=== PATIENT | male | born 2005 | race Caucasian/White ===

== ENCOUNTER 2024-07-30 07:56 | Day surgery (SDC) | payer OTHER ==
[2024-07-27 16:06] VITALS: BMI 22.4
[~2024-07-30 07:56] MED LIST: Pre Op ABX Message 1 EACH MISC MISCELLANE ONE
[2024-07-30] MEDS: LACTATED RINGERS 1,000 ML BAG IV STA (08:48)
[2024-07-30] MEDS ORDERED: TRANEXAMIC 1,000 MG/100ML-NACL 1,000 MG in SALINE 1 100ML.BAG IVPB PRN (09:37)
[2024-07-30] MEDS: MIDAZOLAM 2 MG/2 ML VIAL IV ONE (09:39)
[2024-07-30] MEDS: ONDANSETRON 4 MG/2 ML VIAL IVP STA (09:41)
[2024-07-30] MEDS: DEXAMETHASONE SOD PHOSPHATE 4 MG/ML 1 ML VIAL IVP STA (09:42)
[2024-07-30] MEDS: IV FLUID CONTINUATION 1,000 ML IV ONE (09:42)
--- NOTE | 2024-07-30 09:46 | P.ANPRN ---
Procedure Note - Anesthesia - Nerve Block Performed Right Interscalene Single Time Out Performed: Yes ([id number]) Date of Procedure: 07/30/24 Procedure Start Time: :38 Procedure Stop Time: :42 Location of Patient: PreOp Indication: Acute Post-Operative Pain, Requested by Surgeon Sedation Type: Sedate with meaningful contact maintained Preparation: Sterile Prep, Sterile Dressing Position: Sitting Catheter: None Needle Types: Pajunk Needle Gauge: Other (see comment) (22-gauge 50 mm with 1 attempt) Ultrasound used to visualize needle placement: Yes Ultrasound used to observe medication spread: Yes Injectate: 0.5% Ropivacaine (see comment for volume) (20 mL of 0.5% ropivacaine mixed with 4 mg of dexamethasone) Blood Aspirated: No Pain Paresthesia on Injection Noted: No Resistance on Injection: Normal Image Stored and Saved: Yes Events: Uneventful and Well Tolerated
[2024-07-30] MEDS ORDERED: DEXAMETHASONE SOD PHOSPHATE 4 MG/ML 1 ML VIAL ONE (10:09)
[2024-07-30] MEDS ORDERED: GLYCOPYRROLATE 0.2 MG/ML 2 ML VIAL ONE (10:09)
[2024-07-30] MEDS ORDERED: ROCURONIUM 10 MG/ML (5 ML VIAL) IV ONE (10:09)
[2024-07-30] MEDS ORDERED: fentaNYL (PF) 50 MCG/ML 2 ML AMP ONE (10:09)
[2024-07-30] MEDS ORDERED: MIDAZOLAM 2 MG/2 ML VIAL ONE (10:09)
[2024-07-30] MEDS ORDERED: TRANEXAMIC 1,000 MG/100ML-NACL PREMIX BAG ONE (10:09)
[2024-07-30] MEDS ORDERED: ROPIVACAINE 5 MG/ML 30 ML VIAL ONE (10:09)
[2024-07-30] MEDS ORDERED: PROPOFOL 10 MG/ML 20 ML VIAL IV ONE (10:09)
[2024-07-30] MEDS ORDERED: NEOSTIGMINE 1 MG/ML 10 ML VIAL ONE (10:09)
[2024-07-30] MEDS: LIDOCAINE 2%-EPI 1:100,000 20 ML VIAL SQ ONE (10:48)
[2024-07-30 12:14] VITALS: TEMP 97.4
[2024-07-30 12:40] VITALS: RESP 16
[2024-07-30 13:09] VITALS: BP 118/75; PULSE 64
--- NOTE | 2024-07-30 18:59 | OP ---
OPERATIVE REPORT DATE OF SERVICE : 07/30/2024 MULTILITH OPERATOR: Silas Olivera PA-C. PREOPERATIVE DIAGNOSES: 1. Right shoulder anterior inferior instability. 2. 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 POSTOPERATIVE DIAGNOSES: 1. Right shoulder anterior inferior instability. 2. 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 PROCEDURE PERFORMED: Right arthroscopic Bankart repair. ANESTHESIA: General endotracheal. ESTIMATED BLOOD LOSS: 5 mL. TOURNIQUET: None. DRAINS: None. COMPLICATIONS: None apparent. DISPOSITION: Postanesthesia care unit. INDICATIONS: Karina is a very pleasant 19-year-old male who injured his right shoulder. He sustained a right shoulder anterior inferior dislocation. It was reduced in the emergency department. He subsequently had recurrent instability in the shoulder, which has been fairly debilitating to him. Workup including x-rays and MRI revealed an anterior inferior Bankart lesion. At this point, he feels that he has failed conservative management and elected to proceed with operative intervention. The risks of procedure were discussed with him in detail. These risks include but are not limited to risk of infection, nerve damage, bleeding, pain, continued instability in the shoulder and deep infection. The patient understands the operation as well as the fact there is no guarantee of improvement of his symptoms. An appropriate informed consent was obtained. EXAMINATION UNDER ANESTHESIA OF THE RIGHT SHOULDER: Elevation was to 160 degrees. External rotation at the side was 60, external rotation at 90 degrees of abduction was to 100, internal rotation at 90 degrees of abduction was 80, sulcus was approximately 1 cm, anterior translation over the glenoid rim, posterior translation to the glenoid rim. ARTHROSCOPIC FINDINGS OF RIGHT SHOULDER: 1. Superior labrum: Normal attachment to the superior labrum. The biceps anchor was intact. 2. Anterior inferior labrum: Bankart lesion from the 5 o'clock position to the 3 o'clock position on the glenoid face. 3. Posterior labrum: Normal glenoid labral attachment. 4. Humeral head cartilage: Normal. 5. Rotator cuff: Normal. 6. Glenoid face cartilage: Normal. OPERATIVE PROCEDURE: The patient was identified in the preoperative holding area. Surgical site was marked both by the patient and myself. He was given 2 g of Ancef IV for prophylactic purposes. He was then transported to the operative suite, where he was placed supine on the operating table. The patient was then intubated endotracheally and received general anesthesia throughout the operative procedure. An examination under anesthesia was then performed of the right shoulder. The findings were noted as above. The patient was then placed into the left lateral decubitus position, well padded in preparation for surgery. A menjivar bag was utilized. Great care was taken to ensure that his legs were appropriately padded as well. A well-padded axillary roll was also placed. The patient's right upper extremity was then prepped and draped in usual sterile fashion. He was also placed with 10 pounds of lateral traction and 10 pounds of longitudinal traction. Standard surgical pause was undertaken to ensure that we were operating the correct site and appropriate preoperative antibiotics were given. All staff in the room were in agreement, and we proceeded. The acromion as well as the AC joint coracoid were marked with a surgical pen. The skin of the anticipated portal sites was also marked with a surgical pen. The skin of the anticipated portal sites was then injected with 0.25% Marcaine with epinephrine. I then proceeded to make the posterior portal. A 30-degree arthroscope was introduced into the glenohumeral joint through this portal. The arthroscopic pump pressure was set at 40 mmHg and maintained at a level throughout the entire case. Next utilizing an 18-gauge spinal needle to help localize the placement, the anterior superior portal was made. This was made high in the rotator interval just underneath the biceps tendon. A small blue 5.75 mm cannula was then placed and the outflow was then done through this cannula. A diagnostic arthroscopy to the shoulder was then performed. The findings are noted above. I then placed a second anterior inferior portal. This was placed just superior to the superior rolled border of the subscapularis. An 8.25 screw-in cannula was then placed. The outflow was then switched to this cannula. The arthroscope was then moved to the anterior superior portal. He did have a Bankart lesion. With visualizing into the anterior superior portal, a liberator device was utilized to free the scarred labrum from the anteromedial aspect of the glenoid. When the labrum had been mobilized, I could visualize the subscapularis muscle fibers through the mobilization. I was able to use a grasper and bring it up onto the face of the glenoid. I then utilized the shaver to provide a nice bleeding surface on the anteromedial glenoid neck. This provided a nice bleeding surface to repair. I then placed my first 1.8 mm Arthrex knotless FiberTak anchor. This was placed at the 5 o'clock position. This anchor had excellent purchase in bone. The arthroscope was then moved back to the posterior portal. I then used the curved suture passer device to take a good bite of the inferior glenohumeral ligament and the inferior capsule labral complex. The suture was then shuttled up through the anterior superior portal. The repair stitch was then brought back out with the wire. The repair stitch was then shuttled through the shuttling stitch. Before firmly tightening the repair stitch, I did use a grasper to pull the labrum superiorly. This gave a nice tightening of the inferior glenohumeral ligament. The FiberTak anchor was then tightened down fully and the suture was cut flush with the anchor. I then placed a second 1.8 mm knotless FiberTak anchor at the approximate 4 o'clock to 4:30 position on the glenoid face. Again, it was placed just barely onto the glenoid face. This suture had excellent purchase in bone. Again, the curved suture passer was utilized to take a robust bite of capsule and labral tissue. The repair stitch was then shuttled through the anchor utilizing the shuttling stitch. Again, before firmly tightening the repair stitch, a grasper was utilized to pull the labrum superiorly, which allowed for a good superior shift once tightened. Again, this repair stitch was also cut flush with the anchor. I then placed a third anchor at the 03:30 to 4 o'clock position. Again, it was just slightly onto the glenoid face. Again, I had excellent purchase in bone. Again, the curved suture passer was utilized to take an appropriate bite of capsule and labral tissue. The sutures were shuttled appropriately and then the repair stitch was tightened fully. This stitch was also cut flush with the anchor. I then placed a fourth 1.8 FiberTak anchor at the approximate 3 o'clock position on the glenoid face. Again, it was done in a similar fashion to his previous. I had excellent purchase in bone. Again the curved suture passer was utilized, taking appropriate bite of the capsule and labral tissue. The repair stitch was then shuttled through the anchor and tightened appropriately. The repair stitch was cut flush with the anchor. At this point, the repair was then visualized. The arthroscope was then placed back into the anterior superior portal to visualize the repair. The anterior inferior glenohumeral ligament tension had been restored. The capsule labral complex had been repaired back to the face of the glenoid. There was a nice bumper effect that had been created. The humeral head was centered on the glenoid. At this point time, no further work was deemed necessary. Of note, prior to repairing the Bankart lesion, we did inspect the Hill-Sachs lesion which was very minimal and did not engage the anterior glenoid rim. I did make a decision not to perform a remplissage in this instance. At this point in time, no further work was deemed necessary. The shoulder was thoroughly irrigated and drained with an outflow cannula. The arthroscopic equipment was removed from the shoulder. The arthroscopic portals were then closed with 3-0 nylon interrupted suture. Sterile compressive dressings were applied. The patient's right upper extremity was then placed in a standard sling. All sponge and needle counts were deemed correct prior to closure. The patient tolerated the procedure without apparent complication. He was transferred to the recovery room in stable condition. MMODL / IJN: [id number] /
== END 2024-07-30 13:27 | disposition home or self-care (01) ==
LOC: OR 07:56
PROVIDERS: ATTEND Orthopaedic Surgery Sports Medicine
DX: S43.431A Superior glenoid labrum lesion of right shoulder, initial encounter (principal); S43.014D Anterior dislocation of right humerus, subsequent encounter; M24.411 Recurrent dislocation, right shoulder; Z88.0 Allergy status to penicillin; X58.XXXA Exposure to other specified factors, initial encounter
CPT/HCPCS: 29807; 64415; C1713 ×3; J2250; J1100; J2710; J0690; J2405; J3010; J2795; J2704; J1596